=== PATIENT | female | born 1975 | race Caucasian/White ===

== ENCOUNTER → 2018-01-12 | Outpatient (CLI) | payer OTHER | LOC: M WUC 10:45 | DX: M79.671 Pain in right foot (principal); M77.31 Calcaneal spur, right foot | CPT/HCPCS: 73630 ==

== ENCOUNTER → 2018-12-14 | Outpatient (CLI) | payer OTHER ==
--- NOTE | 2018-12-14 21:29 | REP ---
Clinical: Left knee pain Technique: AP, lateral, bilateral oblique and sunrise views. Findings: The osseous structures and joint spaces are intact and normal. There is no evidence for acute fracture or dislocation. No joint effusion is appreciated. Surrounding soft tissues are unremarkable. No subcutaneous emphysema or radiodense foreign body. Impression: Age-appropriate left knee examination. No acute fracture or dislocation. Electronically Signed by Andre Villalta MD 12/14/2018 09:20 P
--- NOTE | 2018-12-14 22:03 | REP ---
Clinical: Pain. Recent trauma. Technique: AP and lateral views of the right and left tibia / fibula. Findings: No acute fracture dislocation. Skeletal structures, joint spaces, and surrounding soft tissues appear normal. No subcutaneous emphysema or radiodense foreign body. Impression: No acute fracture dislocation. Electronically Signed by Andre Villalta MD 12/14/2018 09:54 P
== END ==
LOC: M WUC 17:07
PROVIDERS: ATTEND Physician Assistant
DX: M79.662 Pain in left lower leg (principal); M79.661 Pain in right lower leg

== ENCOUNTER → 2020-09-07 | Outpatient (CLI) | payer OTHER ==
--- NOTE | 2020-09-07 15:50 | REPMRS ---
Patient History The patient states she had a clinical breast exam in August 31, 2020. Family history of colorectal cancer at age 50 or over in paternal uncle, colorectal cancer at age 40 in maternal cousin. Took hormonal contraceptives for 18 years beginning at age 17. 3D TOMOSYNTHESIS WAS PERFORMED. [facility] lifetime risk for breast cancer is 12.2%. Volpara breast density b. Digital Woman Screen Mammo: September 07, 2020 - Exam #: [id number] Bilateral CC and MLO view(s) were taken. Technologist: RT Kelly Prior study comparison: May 02, 2017, bilateral digital mammo screening bilat, performed at [facility]. FINDINGS: There are scattered fibroglandular densities. There has been no change in the appearance of the mammogram from the prior studies. There is a mild amount of residual fibroglandular tissue which is fairly symmetric. There is no interval development of dominant mass, architectural distortion, or clustered microcalcification suggestive of malignancy. Assessment: BI-RADS/ACR category 1 mammogram. Negative Mammogram. Recommendation Routine screening mammogram in 1 year (for women over age 40). This mammogram was interpreted with the aid of an FDA-approved computer-aided dectection system. Electronically Signed By: Nabil Loo MD 09/07/20 [id number]
== END ==
LOC: M WHC 14:52
PROVIDERS: ATTEND Nurse Practitioner
DX: Z12.31 Encounter for screening mammogram for malignant neoplasm of breast (principal); Z92.0 Personal history of contraception

== ENCOUNTER → 2022-01-17 | Outpatient (CLI) | payer OTHER | LOC: M WHC 14:49 | PROVIDERS: ATTEND Internal Medicine | DX: Z12.31 Encounter for screening mammogram for malignant neoplasm of breast (principal) ==

== ENCOUNTER 2023-11-28 13:16 | Emergency (ER) | payer OTHER ==
[2023-11-28] MEDS ORDERED: ISOVUE-370 76% 100ML VIAL As Ordered ONE (14:08)
[2023-11-28] MEDS: BOOSTRIX VACCINE (TETANUS/DIPHTH/ACEL. PERTUSSIS) 0.5ML SYR IM.IMMUN ONE (14:11)
[2023-11-28] MEDS: KETOROLAC 30 MG/ML 1ML VIAL IV ONE (16:02)
[2023-11-28] MEDS ORDERED: KETO10TAB PO (17:00)
[2023-11-28 17:15] VITALS: BP 130/81; TEMP 97.8; O2SAT 98
== END 2023-11-28 17:24 | disposition home or self-care (01) ==
LOC: M ED 13:16 → EDBD 13:16 → M ED 17:24
DX: S80.12XA Contusion of left lower leg, initial encounter (principal); V49.40XA Driver injured in collision with unspecified motor vehicles in traffic accident, initial encounter; W22.11XA Striking against or struck by driver side automobile airbag, initial encounter; M25.78 Osteophyte, vertebrae; F10.10 Alcohol abuse, uncomplicated; Y92.410 Unspecified street and highway as the place of occurrence of the external cause; Y93.89 Activity, other specified; Y99.9 Unspecified external cause status; Z79.899 Other long term (current) drug therapy
CPT/HCPCS: 70450; 71260; 72125; 73590; 80047; 90471; 90715; 93005; 96374; 99284; J1885; Q9967

== ENCOUNTER 2023-12-08 20:52 | Inpatient (IN) | payer OTHER ==
[~2023-12-08] VITALS: Ht 149.9 cm; Wt 83.1 kg
[~2023-12-08 20:52] MED LIST: KETO10TAB PO
[2023-12-08] MEDS: MORPHINE 2 MG/ML 1ML VIAL IV ONE (22:01)
[2023-12-08 22:08] LABS: BASO # 0.1 10^3/uL (0.0-0.2); BASO % 0.8 % (0.0-1.0); EOS # 0.4 10^3/uL (0.0-0.5); HEMATOCRIT 35.6 % (36.0-47.0); HEMOGLOBIN 12.2 g/dl (12.0-15.5); LYMPH % 14.6 % (24.0-44.0); MEAN CORPUSCULAR HEMOGLOBIN 30.6 pg (27.0-33.0); MEAN CORPUSCULAR HGB CONC 34.3 g/dl (32.0-36.5); MEAN CORPUSCULAR VOLUME 89.2 fl (80.0-96.0); MONO # 1.7 10^3/uL (0.0-0.8); MONO % 12.5 % (2.0-8.0); NEUTROPHILS # 9.5 10^3/uL (1.5-8.5); NEUTROPHILS % 68.5 % (36.0-66.0); PLATELET COUNT, AUTOMATED 296 10^3/uL (150-450); RED BLOOD COUNT 3.99 10^6/uL (4.00-5.40); WHITE BLOOD COUNT 13.9 10^3/uL (4.0-10.0)
[2023-12-08] MEDS ORDERED: ISOVUE-370 76% 100ML VIAL As Ordered ONE (22:12)
[2023-12-08 22:20] LABS: INR 1.01; PARTIAL THROMBOPLASTIN TIME 30.5 SECONDS (24.8-34.2)
[2023-12-08 22:41] LABS: ALBUMIN 3.4 G/DL (3.2-5.2); BILIRUBIN,DIRECT 0.2 MG/DL (<0.4); BILIRUBIN,TOTAL 0.6 MG/DL (0.3-1.2); TOTAL PROTEIN 6.7 G/DL (5.7-8.2)
[2023-12-09] MEDS: cefTRIAXone SOD 1 GM in D5W MINI-BAG PLUS 50 ML IV ONE (00:21)
[2023-12-09] MEDS: PERCOCET 5MG/325MG TAB PO ONE (00:25)
[2023-12-09] MEDS ORDERED: MOM 30ML SUSPENSION UDC PO PRN ×2 (00:25→00:55)
[2023-12-09] MEDS ORDERED: MAALOX 30 ML SUSP *UDC PO PRN ×2 (00:25→00:55)
[2023-12-09] MEDS ORDERED: MORPHINE 2 MG/ML 1ML VIAL IV PRN ×2 (00:25→00:55)
[2023-12-09] MEDS ORDERED: PERCOCET 5MG/325MG TAB PO PRN ×2 (00:25→00:55)
[2023-12-09] MEDS ORDERED: methocarbamoL 750 MG TAB PO PRN ×2 (00:25→00:55)
[2023-12-09] MEDS ORDERED: ACETAMINOPHEN 500 MG TAB PO PRN ×4 (00:25→00:55)
[2023-12-09 04:07] VITALS: BP 125/77; TEMP 97.7; O2SAT 99
[2023-12-09 06:10] LABS: HEMATOCRIT 34.5 % (36.0-47.0); HEMOGLOBIN 11.4 g/dl (12.0-15.5); MEAN CORPUSCULAR VOLUME 90.8 fl (80.0-96.0); PLATELET COUNT, AUTOMATED 286 10^3/uL (150-450); WHITE BLOOD COUNT 10.2 10^3/uL (4.0-10.0)
[2023-12-09] MEDS: HEPARIN SOD (PORCINE) 5000UNITS/ML 1ML VIAL/SYRINGE SC SCH (06:16)
[2023-12-09 06:44] LABS: PROCALCITONIN <0.04 ng/ml
[2023-12-09 06:45] LABS: ALBUMIN 3.3 G/DL (3.2-5.2); ALKALINE PHOSPHATASE 89 U/L (46-116); ALT/SGPT 22 U/L (7.0-40); AST/SGOT 17 U/L (<34); BILIRUBIN,TOTAL 0.5 MG/DL (0.3-1.2); BLOOD UREA NITROGEN 19 MG/DL (9-23); CALCIUM LEVEL 8.8 MG/DL (8.5-10.1); CARBON DIOXIDE LEVEL 26 MMOL/L (20-31); CHLORIDE LEVEL 109 MMOL/L (98-107); CREATININE FOR GFR 0.67 MG/DL (0.55-1.30); GLOMERULAR FILTRATION RATE > 60.0 (>58); GLUCOSE, FASTING 96 MG/DL (60-100); MAGNESIUM LEVEL 1.7 MG/DL (1.8-2.4); POTASSIUM SERUM 4.1 MMOL/L (3.5-5.1); SODIUM LEVEL 141 MMOL/L (136-145); TOTAL PROTEIN 6.3 G/DL (5.7-8.2)
[2023-12-09] MEDS ORDERED: THERTAB52 PO (07:45)
[2023-12-09] MEDS ORDERED: KETO10TAB PO (07:45)
[2023-12-09] MEDS ORDERED: HOME MED LIST COMPLETE! XX SCH (07:50)
[2023-12-09] MEDS: KETOROLAC 30 MG/ML 1ML VIAL IV SCH (08:28)
[2023-12-09] MEDS: DOCUSATE SODIUM 100MG CAPSULE PO SCH (08:28)
[2023-12-09 09:00] VITALS: BP 125/77; TEMP 97.7; O2SAT 99
[2023-12-09] MEDS ORDERED: DOCUSATE SODIUM 100MG CAPSULE PO SCH (09:00)
[2023-12-09 12:10] VITALS: BP 111/70; TEMP 97.2; O2SAT 95
[2023-12-09] MEDS ORDERED: PERCOCET PO (15:38)
[2023-12-09] MEDS ORDERED: AMOX875T2 PO (15:38)
[2023-12-09] MEDS ORDERED: cefTRIAXone SOD 1 GM in D5W MINI-BAG PLUS 50 ML IV SCH (22:00)
== END 2023-12-09 17:10 | disposition home or self-care (01) | DRG 384 ==
LOC: M ED 20:52 → M ED INP 23:57 → M MSPAV 12-09 03:30
PROVIDERS: ADMIT Family Medicine; ATTEND Internal Medicine Nephrology
DX: S80.12XA Contusion of left lower leg, initial encounter (principal); W22.10XA Striking against or struck by unspecified automobile airbag, initial encounter